=== PATIENT | female | born 1960 | race Caucasian/White ===

== ENCOUNTER → 2021-04-14 12:55 | Outpatient (CLI) | payer BC, SELFPAY ==
--- NOTE | ~2021-04-14 | MM_ITS ---
EXAMINATION: MM screening abilio BI w rico HISTORY: Screening TECHNIQUE: Craniocaudal and mediolateral oblique 3-D tomosynthesis images were obtained and synthetic 2-D images were generated. CAD analysis was submitted and interpreted. COMPARISON: No prior mammogram is available for comparison at this institution. BREAST PARENCHYMAL COMPOSITION: There are scattered areas of fibroglandular density. FINDINGS: There is no evidence of suspicious mass, calcification, or architectural distortion to sugg est malignancy in either breast. There has been no suspicious interval change. IMPRESSION: 1. No mammographic evidence of malignancy. 2. Recommend routine screening mammography in one year. BI-RADS Category 1: Negative Reviewed, dictated and finalized at location A.
== END ==
PROVIDERS: PCP Family Medicine
DX: Z12.31 Encounter for screening mammogram for malignant neoplasm of breast (principal)
CPT/HCPCS: 77063; 77067

== ENCOUNTER 2021-08-01 15:04 | Emergency (ER) | payer BC, SELFPAY ==
--- NOTE | 2021-08-01 15:14 | ED.SOB ---
HPI - SOB/Dyspnea General Chief Complaint: Shortness of Breath/Dyspnea Stated Complaint: +covid, breathing prob Time Seen by Provider: 08/01/21 15:14 Source: patient Mode of arrival: ambulatory Limitations: no limitations History of Present Illness HPI Narrative: Gaby is a 60 year old female who ambulated into [facility]. Patient states she was diagnosed with Covid on 07/28/21. Patient states she has had shortness of breath the last 2 days. Patient is speaking in full sentences. Patient has appointment for monoclonal antibody therapy on Monday MD elicited complaint: shortness of breath Related Data Home Medications Medication Instructions Recorded Confirmed bupropion HCl 200 mg tablet,12 hr 200 mg PO BID 06/18/19 02/17/21 sustained-release fluoxetine 10 mg capsule 10 mg PO DAILY 06/18/19 02/17/21 alprazolam 0.5 mg tablet 0.5 mg PO TID PRN 09/01/19 02/17/21 lansoprazole 15 mg capsule,delayed 15 mg PO DAILY 09/02/19 02/17/21 release Allergies Allergy/AdvReac Type Severity Reaction Status Date / Time levofloxacin Allergy Unknown Verified 10/07/19 17:16 Sulfa (Sulfonamide Allergy Unknown Rash Verified 10/07/19 17:16 Antibiotics) SULFA Allergy Unknown Uncoded 10/07/19 17:16 Review of Systems Review of Systems: CONSTITUTIONAL: Denies body aches, fever, chills, or sweats. EYES: Denies visual changes, redness, or discharge. ENT: Denies rhinorrhea,+ congestion, sore throat, or otalgia. CARDIOVASCULAR: Denies chest pain, palpitations, or edema. RESPIRATORY: Denies cough + dyspnea. GASTROINTESTINAL: Denies abdominal pain, nausea, vomiting, or diarrhea. GENITOURINARY: Denies dysuria or hematuria. SKIN: Denies rash, itching, or wounds. MUSCULOSKELETAL: Denies back pain, joint pain, or myalgia. NEUROLOGIC: Denies headache, numbness, tingling, or weakness. PSYCH: Denies depression or anxiety. All systems reviewed & are unremarkable except as noted in HPI and below PMFSH Past Medical History Medical History Acute non-recurrent maxillary sinusitis Bilateral carpal tunnel syndrome BMI 40.0-44.9, adult Breast cancer screening by mammogram Cellulitis of mucous membrane of nose Chronic anxiety Chronic depression Colon cancer screening Cologuard screening was negative on 04/22/2021. Recheck in 3 years. COVID-19 (07/27/21) positive test 07/29/2021 Dental abscess Essential (primary) hypertension Exposure to COVID-19 virus (~07/25/21) GERD (gastroesophageal reflux disease) H/O blood clots Irritable bowel syndrome with diarrhea Mixed hyperlipidemia Morbid obesity with BMI of 45.0-49.9, adult Neoplasm of skin Osteoarthritis involving multiple joints on both sides of body Recurrent pulmonary emboli Seasonal allergic rhinitis Trigger thumb of right hand Verrucous lesion of skin right thigh with atypia 09/22/2020 Surgical History Surgical History H/O shoulder surgery (~2005) Family History Family History Grandparent Acute myocardial infarction Father Acute myocardial infarction, Onset Age: 48 Mother Hypertension Social History Social History Smoking status: Former smoker Alcohol intake: never Substance use: never Substance use type: does not use Additional occupation/education comments: [employer] Comments At time of signature, I have reviewed and agree with nursing past medical, surgical, social and family history unless otherwise noted. Please see nursing chart for further information. There is no relevant family history pertinent to the presenting complaint Exam Narrative: GENERAL: Well-appearing, well-nourished, and in no acute distress. HEAD: Normocephalic, atraumatic. EYES: EOMI. No redness or drainage. Conjunctivae normal. ENT: Mucous
[2021-08-01 15:20] VITALS: BP 153/94; PULSE 96; RESP 24; TEMP 37.2; O2SAT 96
== END 2021-08-01 15:37 | disposition home or self-care (01) ==
PROVIDERS: Emergency Provider Nurse Practitioner Family; PCP Family Medicine
DX: U07.1 COVID-19 (principal); I10 Essential (primary) hypertension; K21.9 Gastro-esophageal reflux disease without esophagitis; E78.2 Mixed hyperlipidemia; E66.01 Morbid (severe) obesity due to excess calories; Z68.41 Body mass index [BMI] 40.0-44.9, adult; M19.90 Unspecified osteoarthritis, unspecified site; Z87.891 Personal history of nicotine dependence
CPT/HCPCS: 99213; G0463

== ENCOUNTER 2021-08-02 08:40 | Outpatient (RCR) | payer BC, SELFPAY ==
[2021-08-02 09:49] VITALS: BP 155/84; PULSE 81; RESP 20; TEMP 36.6; O2SAT 99
[2021-08-02] MEDS: ACETAMINOPHEN 325 MG TABLET 650 MG PO (09:54)
[2021-08-02] MEDS: FAMOTIDINE 20 MG TABLET PO (09:54)
[2021-08-02] MEDS: diphenhydrAMINE HCl CAP 25 MG CAPSULE PO (09:54)
[2021-08-02 11:18] VITALS: BP 148/78; PULSE 66; O2SAT 99
== END 2021-08-02 16:00 ==
LOC: AMCINF 08:40
PROVIDERS: PCP Family Medicine; Visit Provider Internal Medicine Hematology & Oncology
DX: U07.1 COVID-19 (principal); I10 Essential (primary) hypertension; Z86.711 Personal history of pulmonary embolism
CPT/HCPCS: A9270; M0243; Q0244

== ENCOUNTER 2022-10-16 16:28 | Emergency (ER) | payer BC, SELFPAY ==
[2022-10-16 16:44] VITALS: BP 156/82; PULSE 78; RESP 18; TEMP 36.9; O2SAT 98
--- NOTE | 2022-10-16 17:05 | ED.GENADULT ---
HPI - General Adult General Chief complaint: Ear Stated complaint: Left Ear Pain Source: patient Mode of arrival: ambulatory Limitations: no limitations History of Present Illness HPI narrative: Patient presents for evaluation of drainage from left ear symptom onset this morning. She woke from sleep with drainage on her pillow. She states she now has discomfort in that ear. She has some chronic hearing loss but is unsure whether her symptoms are worse today. She also reports some sinus congestion and thick yellow-green drainage from her nares bilaterally. No fever, chills, nausea, vomiting, diarrhea, sore throat. She has had sinus infections in the past and this feels similar. She does not smoke. Related Data Home Medications Medication Instructions Recorded Confirmed bupropion HCl 200 mg tablet,12 hr 200 mg PO BID 06/18/19 02/25/22 sustained-release fluoxetine 10 mg capsule 10 mg PO DAILY 06/18/19 02/25/22 alprazolam 0.5 mg tablet 0.5 mg PO TID PRN anxiety 09/01/19 02/25/22 cetirizine 10 mg tablet (Zyrtec) 10 mg PO DAILY PRN 08/12/21 02/25/22 pantoprazole 20 mg tablet,delayed 20 mg PO QAM 02/25/22 02/25/22 release (Protonix) Allergies Allergy/AdvReac Type Severity Reaction Status Date / Time levofloxacin Allergy Unknown Nausea Verified 10/16/22 16:54 Sulfa (Sulfonamide Allergy Unknown Rash Verified 10/16/22 16:54 Antibiotics) SULFA Allergy Unknown Nausea Uncoded 10/16/22 16:54 Review of Systems Review of Systems: CONSTITUTIONAL: Denies fever, chills, or sweats. EYES: Denies visual changes, redness, or discharge. ENT: Reports drainage from left ear, left-sided otalgia, and chronic hearing loss. Reports sinus congestion and thick yellow-green drainage from her nares CARDIOVASCULAR: Denies chest pain, palpitations, or edema. RESPIRATORY: Denies cough or dyspnea. GASTROINTESTINAL: Denies abdominal pain, nausea, vomiting, or diarrhea. GENITOURINARY: Denies dysuria or hematuria. SKIN: Denies rash or itching. MUSCULOSKELETAL: Denies back pain, joint pain, or myalgia. NEUROLOGIC: Denies headache, numbness, dizziness, or weakness. PSYCHIATRIC: Denies anxiety or depression. [facility] Past Medical History Medical History Acute non-recurrent maxillary sinusitis Bilateral carpal tunnel syndrome BMI 40.0-44.9, adult Breast cancer screening by mammogram Cellulitis of mucous membrane of nose Chronic anxiety Chronic depression Colon cancer screening Cologuard screening was negative on 04/22/2021. Recheck in 3 years. COVID-19 (07/27/21) positive test 07/29/2021 Dental abscess Essential (primary) hypertension Exposure to COVID-19 virus (~07/25/21) GERD (gastroesophageal reflux disease) H/O blood clots Irritable bowel syndrome with diarrhea Mixed hyperlipidemia Total cholesterol 250, HDL 61, triglycerides 93 and LDL 169 on 08/12/2021 Morbid obesity with BMI of 45.0-49.9, adult Neoplasm of skin Osteoarthritis involving multiple joints on both sides of body Recurrent pulmonary emboli Seasonal allergic rhinitis Trigger thumb of right hand UTI (urinary tract infection) Verrucous lesion of skin right thigh with atypia 09/22/2020 Surgical History Surgical History H/O shoulder surgery (~2005) Family History Family History Grandparent Acute myocardial infarction Father Acute myocardial infarction, Onset Age: 48 Mother Hypertension Social History Social History Smoking status: Former smoker Smoking end date: 07/16/92 Alcohol intake: never Substance use: never Substance use type: does not use Living arrangements: with family Occupation/Education: occupation Additional occupation/education comments: [employer] Gender identity (if verbali
== END 2022-10-16 17:05 | disposition home or self-care (01) ==
PROVIDERS: Emergency Provider Nurse Practitioner; PCP Family Medicine
DX: H60.92 Unspecified otitis externa, left ear (principal); J32.9 Chronic sinusitis, unspecified; I10 Essential (primary) hypertension; K21.9 Gastro-esophageal reflux disease without esophagitis; E78.2 Mixed hyperlipidemia; E66.01 Morbid (severe) obesity due to excess calories; M15.9 Polyosteoarthritis, unspecified; Z85.828 Personal history of other malignant neoplasm of skin; Z87.891 Personal history of nicotine dependence; F41.9 Anxiety disorder, unspecified; F32.A Depression, unspecified
CPT/HCPCS: 99213; G0463

== ENCOUNTER → 2023-06-20 08:39 | Outpatient (CLI) | payer BC, SELFPAY ==
--- NOTE | ~2023-06-20 | XR_ITS ---
XR hip LT min 2V 06/20/2023 09:09 Indication: Left hip pain Procedure: 3 views left hip Comparison: No prior studies for comparison. Findings: No fracture, subluxation or dislocation. Mild osteoarthritis of the left hip. No significan t soft tissue abnormality. No foreign bodies. Impression: 1: Mild osteoarthritis of the left hip. Reviewed, dictated and finalized at location D. ITAL UNIT COORDINATOR Impression: 1: Mild osteoarthritis of the left hip.
--- NOTE | ~2023-06-20 | XR_ITS ---
Lumbosacral Spine: AP, oblique, and lateral views Clinical History: Pain Findings: The normal lordotic curve is maintained. The vertebral bodies and posterior elements are i ntact. There is advanced degenerative disc narrowing at L5-S1. There is moderate facet arthropathy fr om L3 through S1. The sacroiliac joints are normally outlined. Impression: [id number] degenerative spondylosis in the lower lumbar spine, as detailed above. Reviewed, dictated and finalized at location M. TER OPERATOR Impression: [id number] degenerative spondylosis in the lower lumbar spine, as detaile d above.
== END ==
PROVIDERS: PCP Family Medicine; Visit Provider Family Medicine
DX: M54.42 Lumbago with sciatica, left side (principal); M43.06 Spondylolysis, lumbar region; M16.12 Unilateral primary osteoarthritis, left hip
CPT/HCPCS: 72110; 73502

== ENCOUNTER 2024-04-02 13:24 | Outpatient (CLI) | payer BC, SELFPAY ==
--- NOTE | ~2024-04-02 | MM_ITS ---
EXAMINATION: MM screening abilio BI w rico HISTORY: Screening mammogram TECHNIQUE: Craniocaudal and mediolateral oblique 3-D tomosynthesis images were obtained and synthetic 2-D images were generated. CAD analysis was submitted and interpreted. COMPARISON: 04/14/2021 BREAST PARENCHYMAL COMPOSITION:Not Dense. There are scattered areas of fibroglandular density. FINDINGS: Subtle developing asymmetry in the left retroareolar region on the CC view. No suspicious m ass, calcification, or architectural distortion are identified in the right breast. IMPRESSION: Subtle developing asymmetry in the left retroareolar region. Spot compression views, and possibly ult rasound, recommended for further evaluation. BI-RADS Category 0: Incomplete: Needs additional imaging evaluation. Reviewed, dictated and finalized at location M. IMPRESSION: Subtle developing asymmetry in the left retroareolar region. Spot compression v iews, and possibly ultrasound, recommended for further evaluation. BI-RADS Category 0: Incomplete: Needs additional imaging evaluation.
== END 2024-04-02 13:25 | disposition home or self-care (01) ==
LOC: MICIMG 13:25
PROVIDERS: PCP Family Medicine; Visit Provider Family Medicine
DX: N64.89 Other specified disorders of breast (principal); Z12.31 Encounter for screening mammogram for malignant neoplasm of breast
CPT/HCPCS: 77063; 77067

== ENCOUNTER 2024-05-13 07:54 | Outpatient (CLI) | payer BC, SELFPAY ==
--- NOTE | ~2024-05-13 | MMUS_ITS ---
EXAMINATION: MM diagnostic abilio LT w rico, US breast LT limited HISTORY: Left breast asymmetry TECHNIQUE: Additional 3-D tomosynthesis images of the left breast were performed and synthetic 2-D im ages were generated. CAD analysis was submitted and interpreted. High resolution limited left breast ultrasound was performed. COMPARISON: 04/02/2024 BREAST PARENCHYMAL COMPOSITION:Not Dense. There are scattered areas of fibroglandular density. FINDINGS: MAMMOGRAPHIC FINDINGS: There is partial effacement of the area of asymmetry in the left subareolar region. No definite mass lesion or suspicious microvascular calcification seen. ULTRASOUND: No sonographic abnormality seen in the region scanned in the left subareolar region. IMPRESSION: Partial effacement of the left subareolar asymmetry without sonographic correlate. Findings are prob ably benign. Six-month follow-up left breast mammogram recommended to assure stability of findings. BI-RADS category 3, probably benign findings. Reviewed, dictated and finalized at location . IMPRESSION: Partial effacement of the left subareolar asymmetry without sonographic correl ate. Findings are probably benign. Six-month follow-up left breast mammogram re commended to assure stability of findings. BI-RADS category 3, probably benign findings.
== END 2024-05-13 07:55 | disposition home or self-care (01) ==
LOC: MICIMG 07:54
PROVIDERS: PCP Family Medicine; Visit Provider Family Medicine
DX: R92.8 Other abnormal and inconclusive findings on diagnostic imaging of breast (principal)
CPT/HCPCS: 76642; 77061; 77065; G0279

== ENCOUNTER 2024-10-16 07:56 | Outpatient (CLI) | payer BC, SELFPAY ==
--- OUTSIDE RECORDS SUMMARY | 2024-10-16 08:01 | XMS_ITS | Clinical Summary ---
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 Gender Identity Not on file Sexual Orientation Not on file Plan of Treatment Health Maintenance Due Date Last Done Comments DTAP/TDAP/TD VACCINES (1 - Tdap) 10/11/1979 HPV/Cotest (21-29) 1981 PAP SMEAR 1981 CERVICAL CANCER SCREENING 1990 HPV/Cotest (30-65) 1990 PAP SMEAR 1990 COLORECTAL SCREENING 2005 Colorectal Cancer Screening 2005 FIT-DNA Q 3 years 2005 FIT/FOBT Q 1 year 2005 Flex Sig/CT Colonography Q 5 years 2005 ZOSTER VACCINE (1 of 2) 2010 BREAST CANCER SCREENING 01/25/2018 01/26/20 17, 01/27/2016 INFLUENZA VACCINE (#1) 2024 RSV VACCINE (60+ or ) (1 - 1-dose 75+ series) 10/11/2035 PNEUMOCOCCAL VACCINE 0-49 YEARS Aged Out No longer eligible b ased on patient's age to complete this topic Procedures Procedure Name Priority Date/Time Associated Diagnosis Comments MAMMO SCREEN BILAT W OR WO CAD Routine 01/25/2017 12:11 PM CDT Visit for screening mammogram from Last 3 Months or Most Recently Relevant to Health Maintenance Results * MAMMO SCREEN BILAT W OR WO CAD (01/25/2017 12:11 PM CDT) Anatomical Region Laterality Modality Breast Bilateral Mammography 01/25/2017 12:1 1 PM CDT Narrative 01/26/2017 1:37 PM CDT BILATERAL DIGITAL SCREENING MAMMOGRAM WITH CAD DATE: 01/25/2017 12:11 PM HISTORY: Yearly screening exam. TECHNIQUE: Standard images of both breasts were obtained on a digital system. CAD was utilized. COMPARISON: 01/27/2016 BREAST COMPOSITION: Scattered fibroglandular densities. FINDINGS: No dominant masses, suspicious calcifications, parenchymal asymmetry or areas of architectural distortion are identified in either breast. OVERALL ASSESSMENT: BI-RADS Category 1 - Negative. RECOMMENDATIONS: Recommend continued annual mammography. Dictated at [facility] Procedure Note Samson Green MD - 01/26/2017 BILATERAL DIGITAL SCREENING MAMMOGRAM WITH CAD DATE: 01/25/2017 12:11 PM HISTORY: Yearly screening exam. TECHNIQUE: Standard images of both breasts were obtained on a digital system. CAD was utilized. COMPARISON: 01/27/2016 BREAST COMPOSITION: Scattered fibroglandular densities. FINDINGS: No dominant masses, suspicious calcifications, parenchymal asymmetry or areas of architectural distortion are identified in either breast. OVERALL ASSESSMENT: BI-RADS Category 1 - Negative. RECOMMENDATIONS: Recommend continued annual mammography. Dictated at [facility] Jori Fofana MD MAMMO ORDERABLES Final Result from Last 3 Months or Most Recently Relevant to Health Maintenance Insurance [facility] OPTIONS PPO [id number] Member Subscriber Plan / Payer (Ef fective 2021-Present) Name:Veronica Hull Relation to Subscriber:Self Name:Veronica Hull Payer ID:[id number] (NAIC) Type:PPO Address: [place] [id number] Care Teams Building Maintenance Custodian Relationship Specialty Start Date End Date Jori Fofana MD [address] [place] [address] PCP - General Family Practice 12/28/15
== END 2024-10-16 07:57 | disposition home or self-care (01) ==
LOC: ANHAUDASC 07:56
PROVIDERS: PCP Family Medicine; Visit Provider Otolaryngology Otolaryngology/Facial Plastic Surgery
DX: H93.12 Tinnitus, left ear (principal); H69.93 Unspecified Eustachian tube disorder, bilateral
CPT/HCPCS: 92557; 92567